=== PATIENT | female | born 1940 | race Caucasian/White ===

== ENCOUNTER 2016-09-12 05:49 | Inpatient (IN) | payer MEDICARE, MEDICAID ==
--- OUTSIDE RECORDS SUMMARY | 2016-09-12 05:53 | XMS REPORT | Continuity of Care Document ---
:1940 Author Organization [facility] ([facility]) Address [address] [place] [address] Phone [phone] Care Team Providers Name Role Phone Laura Bailey Primary Care Provider [phone] Source Comments This disclosure is being made pursuant to the Care Everywhere program, applicable federal and state laws, and may not contain all informaitonavailable regarding this patient.[facility] ([facility]) Active Allergies and Adverse Reactions No Known Allergies Current Medications Prescription Sig. Disp. Refills Start End Date Status Date ALPRAZolam (XANAX) Take 0.5 mg by mouth 3 Active 0.5 mg tablet times daily as needed. simvastatin (ZOCOR) take 1 Tab by mouth 30 Tab 11 Active 40 mg tablet every evening for 30 9 days. Indications: Hypercholesterolemia aspirin 325 mg take 325 mg by mouth Active tablet daily. atenolol (TENORMIN) take 1 Tab by mouth 30 Tab 11 Active 25 mg tablet daily. Indications: 9 ectopy lisinopril 2.5 mg Take 1.25 mg by mouth at Active tablet bedtime. traZODone 100 mg Take 100 mg by mouth at Active tablet bedtime. NYSTATIN-TRIAMCINOL as needed. 2 Active ONE 100,000-0.1 5 unit/g-% cream DOCUSATE CALCIUM Take 100 mg by mouth 2 Active (STOOL SOFTENER PO) times daily as needed. cyanocobalamin Take 1,000 mcg by mouth Active (VITAMIN B-12) daily. 1,000 mcg tablet magnesium oxide 250 Take 250 mg by mouth Active mg tablet daily. diphenhydrAMINE 25 Take 50 mg by mouth Active mg tablet every 6 hours as needed. cimetidine 200 mg Take 200 mg by mouth Active tablet daily as needed. phenazopyridine 95 Take 95 mg by mouth 3 Active mg tablet times daily as needed. estradiol (ESTRACE) Insert 1 Applicatorful 42.5 g 11 Active 0.01 % vaginal vaginally every week. 6 cream nystatin-triamcinol Pt will call when needs 30 g 6 Active one 100,000-0.1 refil - 1-3x/week prn 6 unit/gram-% ointment fluconazole 200 mg Take 1 tablet (200 mg 3 tablet 2 Active tablet total) by mouth every 48 6 hours. fluconazole 200 mg Take 1 tablet (200 mg 3 tablet 1 Active tablet total) by mouth every 48 6 hours. Hold simvastatin on the day you take diflucan levETIRAcetam 250 Take 1 tablet (250 mg 90 tablet 3 Active mg tablet total) by mouth 3 times 7 daily. Active Problems Problem Noted Date Spondylosis of lumbar region without myelopathy or radiculopathy 09/30/2015 Lumbar spine scoliosis 09/30/2015 Bilateral low back pain without sciatica 09/30/2015 Macular atrophy, retinal 12/25/2014 Hyperopia with presbyopia of both eyes 12/25/2014 Yeast vaginitis 11/2013 - & 02/2016 Sabiha albicans 11/27/2014 Pessary maintenance 11/24/2014 Vaginal atrophy 10/04/2014 Vulvar atrophy 10/04/2014 Bladder pain 10/04/2014 Vaginal pain 10/04/2014 Dysuria 10/04/2014 Prolapse of vaginal vault after hysterectomy 03/28/2013 Pelvic pain 03/28/2013 Right lower quadrant abdominal pain 03/25/2013 Myofascial pain syndrome 03/25/2013 Pain in limb 11/30/2007 Most Recent Encounters Date Type Specialty Providers Description 07/28/2016 Refill Anesthesiology Farooq Terrell, [facility] Dx: Neuropathic pain (Primary Dx) 07/01/2016 Office Visit Anesthesiology Harlan Banks MD Chief Comp: Patient Reported Reason For Visit 06/22/2016 Office Visit Obg Urogynecology Bess Tracy, Chief Comp : Patient MD Reported Reason For Sindy Shannon, [employer] Visit Social History Tobacco Use Types Packs/Day Years Used Date Never Smoker Smokeless Tobacco: Never Used Tobacco Cessation:Counseling Given: Yes Comments: Alcohol Use Drinks/Week oz/Week Comments No Last Filed Vital Signs Vital Sign Reading Time Taken Blood Pressure 155/71 02/24/2016 2:59 PM CDT Pulse 57 02/24/2016 2:59 PM CDT Temperature 36.6 C (97.9 F) 02/24/2016 1:16 PM CDT Respiratory Rate 18 02/16/2016 2:44 PM CDT Height 1.778 m (5' 10") 02/24/2016 2:59 PM CDT Weight 71.9 kg (158 lb 8.2 oz) 02/24/2016 2:59 PM CDT Body Mass Index 22.74 02/24/2016 2:59 PM CDT Oxygen Saturation 98% 02/24/2016 2:03 PM CDT Plan of Care Date Type Specialty Providers Description 11/04/2016 Appointment Anesthesiology Harlan Banks MD Chief Comp: Patient 2, Pain Clinic Provider Reported Reason For Visit Health Maintenance Due Date Last Done Comments Hepatitis B Vaccine (1 of 3 - Primary Series) 1940 Tdap Vaccine 1949 Lipid Disorder Screening 1956 Td Vaccine 1956 Colonoscopy 04/04/1988 Zoster Vaccine 1998 Osteoporosis Screening (DXA Bone Density) 2003 Pneumococcal Vaccine (1 of 2 - PCV13) 2003 Mammogram 07/08/2012 07/08/2011 Influenza Vaccine: Seasonal (#1) 02/08/2016 Results from Last 3 Months Not on file
[2016-09-12] MEDS ORDERED: MORPHINE SULFATE 15 MG TABLET.SA PO PRN (06:00)
[2016-09-12] MEDS ORDERED: ROPIVACAINE HCL/PF 100 MG, KETOROLAC TROMETHAMINE 30 MG, EPINEPHrine 0.2 MG in NORMAL S... IJ PRN (06:00)
[2016-09-12] MEDS ORDERED: ceFAZolin SODIUM 1 GM VIAL IV PRN (06:00)
[2016-09-12] MEDS ORDERED: TRANEXAMIC ACID 1,000 MG in NORMAL SALINE 100 ML IV PRN (06:00)
[2016-09-12] MEDS: RINGERS SOLUTION,LACTATED 1,000 ML IV PRN ×2 (07:07→07:45)
[2016-09-12] MEDS ORDERED: MORPHINE SULFATE 15 MG TABLET.SA PO ONE (07:36)
[2016-09-12] MEDS ORDERED: RINGERS SOLUTION,LACTATED 1,000 ML IV ONE (09:45)
[2016-09-12] MEDS ORDERED: ZOLPIDEM TARTRATE 5 MG TABLET PO PRN (10:03)
[2016-09-12] MEDS ORDERED: HYDROmorphone HCL 1 MG/ML DISP.SYRIN IV PRN (10:03)
[2016-09-12] MEDS ORDERED: diphenhydrAMINE HCL 50 MG/ML VIAL IV PRN (10:03)
[2016-09-12] MEDS ORDERED: ACETAMINOPHEN 500 MG TABLET PO PRN (10:03)
[2016-09-12] MEDS ORDERED: MAGNESIUM HYDROXIDE 30 ML UDC PO PRN (10:03)
[2016-09-12] MEDS ORDERED: MAG HYDROX/ALUMINUM HYD/SIMETH 30 ML UDC PO PRN (10:03)
[2016-09-12] MEDS ORDERED: diphenhydrAMINE HCL 25 MG CAPSULE PO PRN (10:06)
[2016-09-12] MEDS ORDERED: traZODone HCL 50 MG TABLET PO PRN (10:06)
[2016-09-12] MEDS ORDERED: ALPRAZolam 0.5 MG TABLET PO PRN (10:06)
--- NOTE | 2016-09-12 10:11 | OR ---
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 Procedure: Right Total knee arthroplasty. Surgeon: Tone Driscoll M.D. Snowboard Instructor: Lincoln Hussein PA-C Anesthesia: Spinal with regional block and local periarticular joint injection. Complications: None Specimens: Bone for disposal. Estimated blood loss: Minimal. Tourniquet time: 85 Minutes at 325 millimeters of mercury. Retained implants: Depuy Attune size 7 right lugged cemented posterior stabilized femoral component. Size 5 fixed-bearing cemented tibial platform. 7 by 7 millimeter posterior stabilized cross-linked tibial insert. 35 millimeter medialized patella button. Indications: Mrs. Rosario is a 76-year-old female who had pain in her right knee with MRI findings consistent with arthrosis and a significant medial femoral condyle osteonecrosis. This patient was followed in my clinic for period of time with significant complaints of right knee pain consistent with arthritic changes. They had failed conservative measures including, but not limited to, activity modification, passage of time, medications, and other conservative measures. Patient wished to proceed with surgical treatment. The risks, benefits, and alternatives were discussed in clinic. The risks of , blood clots, bleeding, infection, nerve/tendon blood vessel/ injury, malposition of components, intraoperative fracture, postoperative limited range of motion, persistent pain, failure of components, and need for additional procedures. Patient wished to proceed consent was obtained after answering all questions. Procedure: After marking the correct extremity on the floor, the patient was taken to the operating room. A timeout was performed. IV antibiotics consisting of Ancef were administered prior to the procedure. A regional followed by spinal anesthetic was induced by anesthesia on the operative table with all bony prominences well-padded. James catheter was placed, and a bump was placed under the operative side buttock. SCDs and SAMANTHA hose were utilized on the nonoperative leg. A well-padded tourniquet was applied to the operative thigh. The operative leg was then pre-scrubbed with alcoho,l prepped, and draped in a standard sterile fashion. After exsanguinating the extremity with an Esmarch bandage, the tourniquet was inflated. After marking out the anterior knee for standard incision centered over the patella, the skin was incised and dissected down to the joint retinaculum. The joint retinaculum was marked out as well as the horizontal axis of the patella, and a standard medial parapatellar arthrotomy was then made. The most proximal aspect of the quadriceps tendon and the patella tendon insertion were protected from release. A partial synovectomy was performed as well as a resection of the infrapatellar fat pad. The distal femoral fat pad proximal to the trochlea was also resected using cautery. The soft tissues were elevated off the medial aspect of the proximal tibia using a Lyons elevator ensuring that we did not transect the medial collateral ligament. Upon initial evaluation range of motion was approximately 0 degrees to 140 degrees of flexion. There were signs of advanced arthrosis in the patellofemoral joint and there was notable softening and depression of the medial femoral condyle. There were large marginal osteophytes which were removed with a rongeur. The knee was hyperflexed and the patella was tucked laterally. Protecting the surrounding soft tissues with Homans, an entry drill was placed down the femoral canal using Whitesides line for guidance into the entry point. The intramedullary femoral alignment mario was utilized in order to cut the distal femur in 5 degrees of valgus resecting 10 millimeters of bone. Next the distal femur was sized to a size 7. A posterior referencing guide was utilized to place the distal femoral cutting block in 3 degrees of external rotation. This was pinned into place. The rotation was confirmed both visually and based on anatomic landmarks. The 4 in 1 cutting jig of the appropriate size was utilized in order to make all bony cuts. The angle wing was used to ensure no notching. Retractors were utilized in order to protect surrounding soft tissues. This cut did not result in any excessive notching. We then cut the box centered over the distal femur. This allowed for resection of the anterior and posterior cruciate ligaments. I then turned my attention to the preparation of the tibia. Using an extra medullary tibial alignment mario, 4 millimeters of bone was resected off the medial articular surface. This was made perpendicular to the mechanical axis of the joint with the alignment mario centered over the ankle mortise. The alignment mario was checked and was noted to be parallel to the mechanical axis, centered over the medial one third of the tibial tubercle, paralleling the anterior surface of the tibia. We then turned our attention to the remaining meniscus and soft tissues. These were removed while protecting the surrounding ligaments and soft tissues. The marginal osteophytes off the anterior, posterior, medial, lateral aspects of the femur and tibia were removed. The tibia was sized out to a size 5. Next the tibia was drilled and punched in an externally rotated position. Next the trial femur and a series of tibial inserts were utilized in order to allow for full extension and maximal flexion. It was found that a 7 millimeter insert gave the best range of motion and stability at multiple flexion points as well as at full extension there was less than 2 mm of gapping both medially and laterally. There is minimal anterior translation with the knee at 90 degrees of flexion and no signs of being able to dislocate the knee. The patella was then prepared. The initial thickness was 25 millimeters. This was reamed down to 15 millimeters parallel to the anterior surface of the patella. It was sized out to a size 35 medialized patella button. This was then drilled and trialed. Without any medial restraint the patella tracked appropriately and did not sublux or dislocate. At this point, it was felt these were the appropriate sized implants, and all trials were removed. The standard periarticular joint injection consisting of ropivacaine, Toradol, and epinephrine were injected into the periarticular joint tissues. The bony surfaces were thoroughly irrigated with a pulsatile- suction saline irrigation device. A bone plug from the prior resected anterior chamfer cut was placed into the drill hole at the distal femur. The bony surfaces were then dried in preparation for placement of the implants. The cement was vacuum mixed per the harbormaster's instructions. The cement was placed on the dry bony surfaces and posterior aspect of the implants. The implants were impacted into place, removing all extruded cement. At this point anesthesia administered tranexamic acid per protocol intravenously. The knee was placed in extension with axial loading with the trial insert while the cement cured. Once the cement cured, all remaining extruded cement was removed. The knee was placed through a range of motion with the trial insert to ensure appropriate range of motion and stability. Final range of motion was approximately 0 to 130 degrees. The knee was again thoroughly irrigated with pulsatile saline lavage. The final polyethylene insert was then impacted into place ensuring no retained soft tissues. The remaining periarticular joint injection was injected. A medium Hemovac drain was placed exiting superior laterally. The knee was then placed over a triangle and the arthrotomy was closed with interrupted #1 Vicryl after thoroughly irrigating the joint. The deep and subcutaneous tissues were closed with interrupted oh and 3-0 Vicryl respectively. Skin was closed with a running subcutaneous 3-0 Monocryl and a prineo Dermabond dressing. 4 x 4's, ABD, Sof-Rol, and a full leg Dmitry wrap were applied. All sponge, needle, blade, and instrument counts were correct prior to closing the wounds. Postoperative condition: The patient was awoken and transferred to the postanesthesia care unit in stable condition. Plan is to be admitted to the inpatient medical/surgical floor postoperatively for 24 hours of IV antibiotics , physical therapy, occupational therapy, and medical comanagement. Patient will be weightbearing as tolerated with range of motion as tolerated. DVT prophylaxis will be with SCDs, SAMANTHA hose, and pharmacological anticoagulation. Anticipated hospital stay is approximately 2-4 days.
[2016-09-12] MEDS: DEXTROSE 5%-LACTATED RINGERS 1,000 ML IV PRN ×2 (12:44→21:01)
[2016-09-12] MEDS: levETIRAcetam 500 MG TABLET PO SCH (12:47)
[2016-09-12] MEDS: KETOROLAC TROMETHAMINE 15 MG/ML VIAL IV SCH ×3 (12:48→22:32)
[2016-09-12] MEDS: ceFAZolin SODIUM 1 GM in DEXTROSE 5 % IN WATER 100 ML IV SCH ×4 (14:01→20:54)
[2016-09-12] MEDS: oxyCODONE HCL/ACETAMINOPHEN 1 TAB TABLET PO PRN ×2 (17:44→22:36)
[2016-09-12] MEDS: SENNOSIDES/DOCUSATE SODIUM 1 TAB TABLET PO SCH (20:54)
[2016-09-12] MEDS: LISINOPRIL 2.5 MG TABLET PO SCH (20:54)
[2016-09-12] MEDS: MORPHINE SULFATE 15 MG TABLET.SA PO SCH (20:56)
[2016-09-12] MEDS: SIMVASTATIN 40 MG TABLET PO SCH (20:57)
[2016-09-13] MEDS: ceFAZolin SODIUM 1 GM in DEXTROSE 5 % IN WATER 100 ML IV SCH ×2 (01:34)
[2016-09-13] MEDS: KETOROLAC TROMETHAMINE 15 MG/ML VIAL IV SCH ×4 (05:07→22:31)
[2016-09-13] MEDS: oxyCODONE HCL/ACETAMINOPHEN 1 TAB TABLET PO PRN ×2 (05:12→13:16)
[2016-09-13 06:02] LABS: Hematocrit 31.5 % (37.0-47.0); Hemoglobin 10.3 gm/dL (12.5-16.0); Mean Cell Volume 95.7 fl (78-100); Mean Corpuscular Hemoglobin 31.3 pg (27-31); Mean Corpuscular Hgb Conc 32.7 g/dl (32-36); Mean Platelet Volume 9.3 fl (6.0-9.5); Platelet Count 217 K/mm3 (150-450); Red Blood Count 3.29 M/mm3 (4.2-5.4); Red Cell Distribution Width 12.8 % (11.5-14.0); White Blood Count 7.8 K/mm3 (4.0-10.5)
[2016-09-13 06:17] LABS: BUN/Creatinine Ratio 7.2 (9.0-21.6); Calcium * 8.2 mg/dL (7.9-10.9); Carbon Dioxide 28.9 mmol/L (24-32.6); Estimated Creat Clear 51.7; Potassium 3.9 mmol/L (3.4-4.6)
[2016-09-13] MEDS: ONDANSETRON HCL/PF 2 MG/ML VIAL IV PRN ×3 (06:55→19:35)
[2016-09-13] MEDS: levETIRAcetam 500 MG TABLET PO SCH ×2 (08:00→12:13)
--- NOTE | 2016-09-13 08:27 | PN ---
Subjective - Date and Time Seen Date: 09/13/16 Time: 08:21 Subjective Narrative: Subjective: Reports nausea and some urinary discomfort. She is sitting in the bed. Pain is well-controlled. Voiding without any complications. Tolerating by mouth intake. Denies calf pain. Slept well. Physical exam: Alert and oriented to person, place and time Right lower Extremity: Palpable dorsalis pedis pulse. Sensation grossly intact to light touch. Dressings clean and dry. Able to flex and extend ankle and toes. No excessive drainage. Calf and thigh are soft and nontender. Assessment: Postop day 1 status post right total knee arthroplasty. Plan: Continue with physical and occupational therapy weightbearing as tolerated. Continue with anticoagulation. 24 hours postoperative prophylactic antibiotics. Pain control with goal to rely on oral medications. We will monitor her nausea and if it seems to be related to her pain meds were changed disease. Continue bowel regimen. Will need 6 weeks with walker or assitive device to protect joint while ambulating during the recovery process. Discharge planning. Discontinue drain and James catheter. Urinalysis has she uses a pessary and notes occasional urinary tract infections. Repeat labs in a.m. Objective - Vitals Vitals: Last Vital Signs Temp 36.3 C L 09/13/16 06:53 Pulse 49 L 09/13/16 06:53 Resp 16 09/13/16 06:53 BP 97/49 09/13/16 06:53 Pulse Ox 95 09/13/16 06:53 - Abnormal Lab Findings Abnormal Lab Findings: Abnormal Lab Results 09/13/16 09/13/16 Range/Units 05:50 05:50 RBC 3.29 L (4.2-5.4) M/mm3 Hgb 10.3 L (12.5-16.0) gm/dL Hct 31.5 L (37.0-47.0) % MCH 31.3 H (27-31) pg Est GFR (Non-Af Amer) 59 L (60-130) mL/min BUN/Creatinine Ratio 7.2 L (9.0-21.6) Random Glucose 113 H (70-110) mg/dL - Exam Constitutional: Present: Alert, Oriented x3 Cauti Physician Documentation - Urinary Catheter Management Urethral (James) Date of Insertion: 09/12/16 Time of Insertion: 08:00 Assessment/Plan - Problems/Diagnosis (1) Status post total right knee replacement Problem: Acute (2) Acute blood loss anemia Problem: Acute (3) Dysuria Problem: Acute (4) Hypertension Problem: Chronic (5) Heart murmur Problem: Chronic (6) Hyperlipidemia Problem: Chronic (7) Cystocele Problem: Chronic (8) Atrophic vaginitis Problem: Chronic
[2016-09-13] MEDS: PROMETHAZINE HCL 5 MG in DEXTROSE 5 % IN WATER 50 ML IV PRN ×4 (08:52→15:44)
[2016-09-13 09:04] LABS: Urine Bilirubin Negative (NEGATIVE); Urine Blood 250 /ul (NEGATIVE); Urine Ketone Negative (NEGATIVE); Urine Nitrite Negative (NEGATIVE); Urine Protein Negative (NEGATIVE); Urine Specific Gravity >=1.030 SP.GR. (1.005-1.010); Urine Urobilinogen Normal (NORMAL)
[2016-09-13 09:11] LABS: Urine Appearance Clear; Urine Bacteria 4+; Urine Color Yellow; Urine Mucus Moderate - 2+; Urine Renal Epithelial Cell Few - 1+ /hpf; Urine Yeast Many - 3+
[2016-09-13] MEDS: ENOXAPARIN SODIUM 40 MG/0.4 ML SYRG SC SCH (10:00)
[2016-09-13] MEDS: CYANOCOBALAMIN 1,000 MCG TABLET PO SCH (10:00)
[2016-09-13] MEDS: MAGNESIUM OXIDE 400 MG TABLET PO SCH (10:00)
[2016-09-13] MEDS: MORPHINE SULFATE 15 MG TABLET.SA PO SCH ×2 (10:02→20:29)
[2016-09-13] MEDS: ATENOLOL 25 MG TABLET PO SCH (10:06)
[2016-09-13] MEDS: CIPROFLOXACIN HCL 500 MG TABLET PO SCH (20:29)
[2016-09-13] MEDS: SIMVASTATIN 40 MG TABLET PO SCH (20:30)
[2016-09-13] MEDS: SENNOSIDES/DOCUSATE SODIUM 1 TAB TABLET PO SCH (20:30)
[2016-09-13] MEDS: LISINOPRIL 2.5 MG TABLET PO SCH (20:30)
[2016-09-14] MEDS: oxyCODONE HCL/ACETAMINOPHEN 1 TAB TABLET PO PRN (00:24)
[2016-09-14 05:11] LABS: Hematocrit 36.5 % (37.0-47.0); Hemoglobin 11.3 gm/dL (12.5-16.0); Mean Cell Volume 100.6 fl (78-100); Mean Corpuscular Hemoglobin 31.1 pg (27-31); Mean Platelet Volume 9.9 fl (6.0-9.5); Platelet Count 170 K/mm3 (150-450); Red Blood Count 3.63 M/mm3 (4.2-5.4); Red Cell Distribution Width 12.7 % (11.5-14.0); White Blood Count 7.5 K/mm3 (4.0-10.5)
[2016-09-14 05:25] LABS: BUN/Creatinine Ratio 6.9 (9.0-21.6); Calcium * 8.5 mg/dL (7.9-10.9); Carbon Dioxide 25.2 mmol/L (24-32.6); Estimated Creat Clear 49.6; Potassium 4.2 mmol/L (3.4-4.6)
[2016-09-14] MEDS: KETOROLAC TROMETHAMINE 15 MG/ML VIAL IV SCH (05:36)
[2016-09-14] MEDS: levETIRAcetam 500 MG TABLET PO SCH ×2 (06:49→12:11)
[2016-09-14] MEDS: ONDANSETRON HCL/PF 2 MG/ML VIAL IV PRN ×2 (07:48→12:14)
[2016-09-14] MEDS: MORPHINE SULFATE 15 MG TABLET.SA PO SCH ×2 (09:11→20:51)
[2016-09-14] MEDS: CYANOCOBALAMIN 1,000 MCG TABLET PO SCH (09:11)
[2016-09-14] MEDS: CIPROFLOXACIN HCL 500 MG TABLET PO SCH ×2 (09:11→20:50)
[2016-09-14] MEDS: ATENOLOL 25 MG TABLET PO SCH (09:12)
[2016-09-14] MEDS: MAGNESIUM OXIDE 400 MG TABLET PO SCH (09:12)
[2016-09-14] MEDS: ENOXAPARIN SODIUM 40 MG/0.4 ML SYRG SC SCH (09:13)
--- NOTE | 2016-09-14 13:02 | PN ---
Subjective - Date and Time Seen Date: 09/14/16 Time: 12:57 Subjective Narrative: Main complaint is nausea. No vomiting. Has not had a bowel movement. Pain has been well controlled. Does not feel nausea related to taking pain medication. Has nausea with smell of food and with activities. Is ambulating well with PT. Objective Objective Narrative: Bandages removed. Incision well approximated. No drainage or active bleeding. ROM 5-80 degrees. Calf supple. N/V intact PF/DF ankle. - Vitals Vitals: Last Vital Signs Temp 37.7 C H 09/14/16 10:00 Pulse 77 09/14/16 10:00 Resp 20 09/14/16 10:00 BP 134/59 09/14/16 10:00 Pulse Ox 95 09/14/16 10:00 - Abnormal Lab Findings Abnormal Lab Findings: Abnormal Lab Results 09/14/16 09/14/16 Range/Units 05:00 05:00 RBC 3.63 L (4.2-5.4) M/mm3 Hgb 11.3 L (12.5-16.0) gm/dL Hct 36.5 L (37.0-47.0) % MCV 100.6 H (78-100) fl MCH 31.1 H (27-31) pg MCHC 31.0 L (32-36) g/dl MPV 9.9 H (6.0-9.5) fl Est GFR (Non-Af Amer) 56 L (60-130) mL/min BUN/Creatinine Ratio 6.9 L (9.0-21.6) - Exam Constitutional: Present: Alert, Oriented x3, Cooperative, No distress Cauti Physician Documentation - Urinary Catheter Management Urethral (James) Date of Insertion: 09/12/16 Time of Insertion: 08:00 Date of Removal: 09/13/16 Time of Removal: 06:45 Assessment/Plan - Problems/Diagnosis (1) Acute blood loss anemia Problem: Acute Narrative: stable, asymptomatic (2) Dysuria Problem: Acute Narrative: on cipro (3) Status post total right knee replacement Problem: Acute Narrative: PT, anticoagulation, pain control, plan for discharge tomorrow (4) Hyperlipidemia Problem: Chronic (5) Hypertension Problem: Chronic
[2016-09-14] MEDS: HYDROcodone/ACETAMINOPHEN 1 EACH TABLET PO PRN ×2 (16:48→20:51)
[2016-09-14] MEDS: SENNOSIDES/DOCUSATE SODIUM 1 TAB TABLET PO SCH (20:49)
[2016-09-14] MEDS: SIMVASTATIN 40 MG TABLET PO SCH (20:50)
[2016-09-14] MEDS: LISINOPRIL 2.5 MG TABLET PO SCH (20:51)
[2016-09-15] MEDS: levETIRAcetam 500 MG TABLET PO SCH (06:47)
--- NOTE | 2016-09-15 08:52 | DS ---
(1) Acute blood loss anemia Problem: Acute (2) Dysuria Problem: Acute (3) Status post total right knee replacement Problem: Acute (4) Hyperlipidemia Problem: Chronic (5) Hypertension Problem: Chronic Description of Stay: Mrs. Rosario was admitted on September 12 after undergoing right total knee arthroplasty. She was admitted for PT, anticoagulation, pain control and antibiotics. She progressed well with therapy. Her main complaint was nausea which was treated. She reported dysuria and this was treated with Cipro. Post op day one drain and glaser removed. Post operative anemia noted with last Hgb of 11.3. Anemia asymptomatic. Dressings changed post op day 2 with wound looking stable. ROM on discharge 5-80 degrees. Patient discharged to resume home medications. She was discharged on [place] and MS Contin for pain. Xarelto for 7 more days and then resume 325mg asprin daily after that. Outpatient PT was ordered. She has a follow up in our office in 10-14 days. She is to report any drainage from her wound or any concerns. Report any fevers greater than 101.5. Procedures Performed: see notes below Discharge Disposition: Home self care Disposition: Home self-care Condition: Good Referrals: Laura Bailey MD [Primary Care Provider] - Additional Patient Instructions (free text): Follow-up in the office with Dr. Driscoll on 09-27-16@9:45am. [facility] September 16 at 10:30 a.m. Prescriptions (Any new or edited meds): Ciprofloxacin HCl [Cipro] 500 mg PO BID 3 Days HYDROcodone/ACETAMINOPHEN [Portage 5-325] 2 each PO Q4H PRN #90 tablet PRN Reason: Pain Morphine Sulfate [Ms Contin] 15 mg PO Q12H #30 tablet.sa Promethazine HCl [Phenergan] 25 mg PO Q4H #30 tablet Rivaroxaban [Xarelto] 10 mg PO DAILY #7 tablet Sennosides/Docusate Sodium [Senokot-S] 2 tab PO HS #30 tablet Complete Home Medications List: Complete Home Medication List: ALPRAZolam [Xanax] 0.5 mg PO TID PRN 08/31/16 Atenolol [Tenormin] 12.5 mg PO DAILY 08/31/16 Cyanocobalamin [Vitamin B-12] 1,000 mcg PO DAILY 08/31/16 Diphenhydramine HCl [Benadryl] 50 mg PO Q6H PRN 08/31/16 Estradiol [Estrace Vaginal] 1 appl VG Q7D PRN 08/31/16 Hydrocodone/Acetaminophen [Lortab 5-325 mg Tablet] 1 each PO Q6H PRN 08/31/16 Levetiracetam [Keppra] 500 mg PO 1200 08/31/16 Lisinopril [Zestril] 1.25 mg PO HS 08/31/16 Magnesium Oxide [Magnesium] 250 mg PO DAILY 08/31/16 Simvastatin [Zocor] 40 mg PO HS 08/31/16 traZODone HCL [Desyrel] 100 mg PO HS PRN 08/31/16 Levetiracetam 250 mg PO DAILY 09/12/16 Ciprofloxacin HCl [Cipro] 500 mg PO BID 3 Days 09/15/16 HYDROcodone/ACETAMINOPHEN [Port[place] 5-325] 2 each PO Q4H PRN #90 tablet 09/15/16 Morphine Sulfate [Ms Contin] 15 mg PO Q12H #30 tablet.sa 09/15/16 Promethazine HCl [Phenergan] 25 mg PO Q4H #30 tablet 09/15/16 Rivaroxaban [Xarelto] 10 mg PO DAILY #7 tablet 09/15/16 Sennosides/Docusate Sodium [Senokot-S] 2 tab PO HS #30 tablet 09/15/16
[2016-09-15] MEDS: MORPHINE SULFATE 15 MG TABLET.SA PO SCH (09:46)
[2016-09-15] MEDS: CYANOCOBALAMIN 1,000 MCG TABLET PO SCH (09:47)
[2016-09-15] MEDS: MAGNESIUM OXIDE 400 MG TABLET PO SCH (09:47)
[2016-09-15] MEDS: ENOXAPARIN SODIUM 40 MG/0.4 ML SYRG SC SCH (09:48)
[2016-09-15] MEDS: ATENOLOL 25 MG TABLET PO SCH (09:48)
[2016-09-15] MEDS: CIPROFLOXACIN HCL 500 MG TABLET PO SCH (09:48)
[2016-09-15 10:41] VITALS: BP 126/64
== END 2016-09-15 12:12 | disposition home or self-care (01) | DRG 470 ==
LOC: MS 05:49
PROVIDERS: ADMIT Orthopaedic Surgery; ATTEND Orthopaedic Surgery
PROC: 0SRC0J9 Replacement of Right Knee Joint with Synthetic Substitute, Cemented, Open Approach (ICD-10-PCS; principal; 2016-09-12 08:00)
DX: M17.11 Unilateral primary osteoarthritis, right knee (principal); M87.9 Osteonecrosis, unspecified; D62 Acute posthemorrhagic anemia; R30.0 Dysuria; I10 Essential (primary) hypertension; E78.5 Hyperlipidemia, unspecified; Z79.82 Long term (current) use of aspirin

== ENCOUNTER 2019-09-26 12:19 | Inpatient (IN) ==
--- NOTE | 2019-09-26 14:52 | HP ---
Chief Complaint - Chief Complaint Date of Service: 09/26/19 Time of Service: 14:29 Chief Complaint: hip fracture History of Present Illness: Patient with past medical history of hypertension, recent pulmonary embolism and DVT on Eliquis, temporal arteritis on steroid taper, arthritis. She has had right hip pain for somewhere between 2 and 4 weeks. She went to the ER, and hip x-rays were negative. She then went to her PCP who ordered a CT, which showed " SUBTLE HORIZONTAL BONY SCLEROSIS INVOLVING THE SUBCAPITAL REGION OF THE RIGHT FEMUR. THIS MAY REFLECT AN INCOMPLETE FRACTURE." She denies falling. Ortho was consulted, who is planning on taking her to the OR for repair tomorrow. She denies any other acute complaints. No signs of infection. Medical History (Last Reviewed 09/26/19 @ 13:31 by Annette Judd RN) Acute blood loss anemia (Chronic) Onset Date: Unknown Dysuria (Chronic) Onset Date: Unknown Hypertension (Chronic) Onset Date: Unknown Heart murmur (Chronic) Onset Date: Unknown Hyperlipidemia (Chronic) Onset Date: Unknown Cystocele (Chronic) Onset Date: Unknown Atrophic vaginitis (Chronic) Onset Date: Unknown History of pulmonary embolism Arrhythmia Onset Date: Unknown B12 deficiency Onset Date: ~2012 Breast neoplasm, malignant Onset Date: ~1997 left, lump removed GERD (gastroesophageal reflux disease) Onset Date: ~2012 Hypertension, essential Onset Date: ~2012 Osteoarthritis Onset Date: ~2012 Ovarian cyst Onset Date: Unknown Surgical History: Surgical History (Last Reviewed 09/26/19 @ 13:31 by Annette Judd RN) History of appendectomy Onset Date: ~1956 History of back surgery Onset Date: ~1991 laminectomy L4-L5 History of bladder surgery Onset Date: ~2004 Pessary History of dilation and curettage Onset Date: Unknown 2 or 3 History of hysterectomy Onset Date: ~1976 abd History of lumpectomy Onset Date: ~1989 left breast-cancer History of oophorectomy Onset Date: ~1976 half of ovary remaining History of temporal artery biopsy Onset Date: 05/13/19 [id number]. History of total knee arthroplasty Onset Date: ~2016 Dr. Driscoll- Family History: Family History (Last Reviewed 09/26/19 @ 13:31 by Annette Judd RN) Brother Diabetes Brother Diabetes Father , age 75- Heart disease Alcoholism Mother , age 65 from [place] Breast cancer dx-age 50's Diabetes Brother Diabetes Heart disease Brother Cancer lung Brother , shot accidental No problems noted. Social History: (Last Updated 09/26/19 @ 13:32 by Annette Judd RN) Social History: longterm: No Marital status: / lives independently: Yes household members: none number of children: 4 current occupational status: retired Service: No Tobacco: Smoking Status: Never smoker Alcohol: alcohol intake: former Substance Use: substance use type: does not use Dietary Habits: caffeine: No Personal Safety: victim of physical abuse: No victim of emotional abuse: No Review Of Systems (GEN) - Review of Systems Generalized/Overall Review: Absent: Fever EENTM: Present: Other - Facial swelling since starting prednisone Respiratory: Absent: Cough, Shortness of Breath Cardiac: Absent: Chest Pain, Edema Abdominal: Present: Constipation - Not increased from baseline. Absent: Vomiting Genitourinary: Present: No Symptoms Reported Musculoskeletal: Present: Joint Pain - Right hip, Back Pain Neurological: Present: No Symptoms Reported Skin: Present: No Symptoms Reported Immunizations: IMMUNIZATION HX Immunizations Up to Date Yes History of Influenza Vaccine No Hx Pneumococcal Vaccination No Allergies/Adverse Reactions: Allergies Allergy/AdvReac Type Severity Reaction Status Date / Time tizanidine Allergy cough, bad Verified 09/24/19 09:21 sore throat Home Medications: HOME MEDICATIONS Cyanocobalamin [Vitamin B-12] 500 mcg PO DAILY 08/31/16 [Last Taken Unknown] Estradiol [Estrace Vaginal] 1 gm VG DAILY PRN 08/31/16 [Last Taken Unknown] aspirin 325 mg tablet 81 mg PO DAILY 03/06/18 [Last Taken Unknown] levetiracetam 250 mg tablet 250 mg PO TID tab 02/19/19 [Last Taken Unknown] magnesium citrate 100 mg tablet 100 mg PO DAILY 02/19/19 [Last Taken Unknown] alprazolam 0.5 mg tablet 0.5 mg PO TID PRN #30 tab 07/24/19 [Last Taken Unknown] trazodone 100 mg tablet 100 mg PO HS #30 tab 07/25/19 [Last Taken Unknown] Tocilizumab [Actemra] 162 mg SQ Q7D 09/23/19 [Last Taken Unknown] Apixaban [Eliquis] 5 mg PO BID 09/26/19 [Last Taken Unknown] Cyclobenzaprine HCl 10 mg PO DAILY PRN 09/26/19 [Last Taken Unknown] Diphenhydramine HCl 50 mg PO Q6H PRN 09/26/19 [Last Taken Unknown] Docusate Sodium [Colace] 100 mg PO BID 09/26/19 [Last Taken Unknown] Esomeprazole Magnesium [Nexium] 40 mg PO DAILY PRN 09/26/19 [Last Taken Unknown] HYDROcodone/ACETAMINOPHEN [Hydrocodon-Acetaminophen 5-325] 1 ea PO BID 09/26/19 [Last Taken Unknown] Lisinopril 1.25 mg PO HS 09/26/19 [Last Taken Unknown] Metoprolol Succinate [Toprol Xl] 25 mg PO DAILY 09/26/19 [Last Taken Unknown] Prednisone 10 mg PO DAILY 09/26/19 [Last Taken Unknown] Simvastatin 40 mg PO HS 09/26/19 [Last Taken Unknown] Exam - Exam Vital Signs: Vital Signs - Last Taken Temp 37.1 C 09/26/19 13:04 Pulse 79 09/26/19 13:04 Resp 14 09/26/19 13:04 BP 148/64 09/26/19 13:04 Pulse Ox 98 09/26/19 13:04 Constitutional: Present: Alert, Cooperative, No distress, Elderly ENT Exam: Present: moist mucous membranes Respiratory: Present: lungs clear, normal breath sounds Cardiovascular/Chest: Present: regular rate, rhythm Abdomen: Present: soft, nontender Extremity: Absent: lower extremity edema Eye contact: Present: cooperative Assessment/Plan - Assessment/Plan (1) Subcapital fracture of right femur Assessment: Ortho has been consulted, and is planning on surgical repair tomorrow. She reports being sensitive to anesthesia and pain medications. she is prescribed lortab bid, and will continue. Will also add prn lortab to her scheduled home lortab, so she can have pain meds q6h. CMP, CBC, EKG pending did not reveal significant abnormality to interfere with surgery. Using the NSQIP surgical risk calculator, she is below average risk for any complication. OK to proceed with surgery. She is average risk for developing a VTE. She is above average risk for DC to rehab facility. Problem: Acute (2) Temporal arteritis Assessment: She is seeing a qual field manager at the [facility]. She reports being started on 60 mg of prednisone back in April. She is currently taking 12.5 mg prednisone, and will decrease to 10 mg next week. Discussed the high likelihood that her facial swelling she has been observing is from the steroid. Problem: Acute (3) Arthritis Assessment: She goes to a pain clinic and is prescribed Lortab and 250 mg Keppra 3 times daily for pain and opioid use. Problem: Acute (4) Hypertension Assessment: She was prescribed 1.25 mg lisinopril and 50 mg metoprolol. She reports having a heart rhythm where it feels like it stops and kicks in, which improved after a "blood pressure medicine" was started, likely metoprolol. Problem: Chronic (5) History of pulmonary embolism Assessment: She has been taking Eliquis for a PE and a DVT for approximately a month. She did not take her Eliquis this morning, and will hold and restart postop. Problem: Acute
[2019-09-26 15:12] LABS: Hematocrit 39.4 % (37.0-47.0); Hemoglobin 12.8 gm/dL (12.5-16.0); Mean Cell Volume 98.3 fl (78-100); Mean Corpuscular Hemoglobin 31.9 pg (27-31); Mean Corpuscular Hgb Conc 32.5 g/dl (32-36); Mean Platelet Volume 9.7 fl (8-12.5); Neutrophil # 2.1 K/mm3 (1.3-6.0); Neutrophil % 44.8 % (42-75.0); Platelet Count 221 K/mm3 (150-450); Red Blood Count 4.01 M/mm3 (4.2-5.4); Red Cell Distribution Width 13.4 % (11.5-14.0); White Blood Count 4.7 K/mm3 (4.0-10.5)
[2019-09-26] MEDS ORDERED: ALPRAZolam 0.5 MG TABLET PO PRN (15:16)
[2019-09-26] MEDS ORDERED: PANTOPRAZOLE SODIUM 40 MG TABLET.EC PO PRN (15:16)
[2019-09-26 15:18] LABS: Albumin * 3.7 gm/dl (3.4-5.0); Anion Gap 9.2 mmol/L (6.8-13.8); BUN/Creatinine Ratio 8.7 (9.0-21.6); Bilirubin, Total 0.5 mg/dL (0.0-1.1); Ca. Corrected For Albumin 8.9 mg/dL (8.4-10.2); Carbon Dioxide 31.7 mmol/L (24-32.6); Potassium 3.9 mmol/L (3.4-4.6); Total Protein 6.2 gm/dL (6.2-8.2)
--- NOTE | 2019-09-26 16:15 | CONS ---
[facility] - General Date of Service: 09/26/19 Narrative: Mrs. Rosario is an 79-year-old female who lives at home independently with her significant other who runs her own errands and does her own chores who states in the last 1 to 2 weeks she is been having increasing pain to her right hip region with difficulty with weightbearing and having difficulties with activities of daily living. She states that she is having posterior and lateral pain with weightbearing and mobility. She was seen by her primary care physician initially with radiographs which were relatively unremarkable but had a CT scan which is concerning for a nondisplaced femoral neck fracture. She states prior to the last 1 to 2 weeks of pain she had some mild discomfort but no significant symptoms on the right side. She denies falls or any acute episode but notes that her pain is becoming more progressive and intense and making it more difficult for her to ambulate. Source: patient Exam Limitations: no limitations - History of Present Illness Timing/Duration: 1 week Severity: moderate Modifying Factors - (Worsens): Reports: movement Modifying Factors - (Improves): Reports: immobilization Associated Symptoms: denies symptoms Allergies/Adverse Reactions: Allergies tizanidine Allergy (Verified 09/24/19 09:21) cough, bad sore throat Home Medications: Home Medications Medication Instructions Recorded Last Taken Cyanocobalamin [Vitamin B-12] 500 mcg PO DAILY 08/31/16 Unknown Estradiol [Estrace Vaginal] 1 gm VG DAILY PRN 08/31/16 Unknown aspirin 325 mg tablet 81 mg PO DAILY 03/06/18 Unknown levetiracetam 250 mg tablet 250 mg PO TID tab 02/19/19 Unknown magnesium citrate 100 mg tablet 100 mg PO DAILY 02/19/19 Unknown alprazolam 0.5 mg tablet 0.5 mg PO TID PRN #30 tab 07/24/19 Unknown trazodone 100 mg tablet 100 mg PO HS #30 tab 07/25/19 Unknown Tocilizumab [Actemra] 162 mg SQ Q7D 09/23/19 Unknown Apixaban [Eliquis] 5 mg PO BID 09/26/19 Unknown Cyclobenzaprine HCl 10 mg PO DAILY PRN 09/26/19 Unknown Diphenhydramine HCl 50 mg PO Q6H PRN 09/26/19 Unknown Docusate Sodium [Colace] 100 mg PO BID 09/26/19 Unknown Esomeprazole Magnesium [Nexium] 40 mg PO DAILY PRN 09/26/19 Unknown HYDROcodone/ACETAMINOPHEN 1 ea PO BID 09/26/19 Unknown [Hydrocodon-Acetaminophen 5-325] Lisinopril 1.25 mg PO HS 09/26/19 Unknown Metoprolol Succinate [Toprol Xl] 25 mg PO DAILY 09/26/19 Unknown Prednisone 10 mg PO DAILY 09/26/19 Unknown Simvastatin 40 mg PO HS 09/26/19 Unknown Procedures Injection of steroid (04/06/11) Injection of therapeutic substance into joint or ligament (04/06/11) Injection or infusion of other therapeutic or prophylactic substance (04/06/11) Replacement of Right Knee Joint with Synthetic Substitute, Cemented, Open Approach (09/12/16) Review of Systems - Review of Systems Generalized/Overall Review: Present: No Symptoms Reported Physical Examination - Exam Narrative: Right lower extremity: Status post total knee arthroplasty, no ecchymosis, lacerations or abrasions about the hip. Tenderness over the lateral aspect of the hip. Pain with axial loading of the hip joint. Mild pain with resisted abduction and abduction. 4/5 strength throughout the right hip limited by pain in flexion, abduction abduction and rotation. She has pain with logroll at the extremes of internal and external rotation. She does not have any shortening or gross abnormal appearance to the leg. Palpable dorsalis pedis pulse. Sensation is intact light touch. Vital Signs: Vital Signs - Last Taken Temp 37.1 C 09/26/19 13:04 Pulse 79 09/26/19 13:04 Resp 14 09/26/19 13:04 BP 148/64 09/26/19 13:04 Pulse Ox 98 09/26/19 13:04 O2 Oxygen Delivery Method Room Air Constitutional: Present: Alert, Oriented x3 - Results and Findings: Narrative: X-rays and CT reviewed which shows a mid cervical/subcapital nondisplaced right femoral neck fracture with mild underlying degenerative change. Lab/Microbiology results last 24 hrs: Abnormal/Pending Laboratory Last 24 HRS 09/26/19 09/26/19 14:53 14:53 RBC 4.01 L MCH 31.9 H Immature Gran % (Auto) 1.30 H Immature Gran # (Auto) 0.06 H Monocytes % 10.0 H Sodium 143 H Plasma Sodium 143 H Est GFR (Non-Af Amer) 54 L D BUN/Creatinine Ratio 8.7 L ALT 17 L - Assessments/Findings (1) Fracture of femoral neck, right, closed Diagnosis(s): The plan will be percutaneous fixation of the right femoral neck fracture. Risks and recovery were discussed. She will need to hold her anticoagulation today and can be resumed on it postoperatively. She will receive IV Ancef preoperatively. I discussed with her admitting physician a scopolamine patch preoperatively in order to help assist with her postoperative nausea. Consent will be obtained. We reviewed the risks, benefits, alternatives treatment. Problem: Acute Qualifiers: Encounter type: initial encounter Qualified Code(s): S72.001A - Fracture of unspecified part of neck of right femur, initial encounter for closed fracture
[2019-09-26] MEDS: levETIRAcetam 500 MG TABLET PO SCH (17:21)
[2019-09-26] MEDS: HYDROcodone/ACETAMINOPHEN 1 EACH TABLET PO PRN (17:23)
[2019-09-26] MEDS: DOCUSATE SODIUM 100 MG CAPSULE PO SCH (20:18)
[2019-09-26] MEDS: traZODone HCL 50 MG TABLET PO SCH (20:18)
[2019-09-26] MEDS: HYDROcodone/ACETAMINOPHEN 1 EACH TABLET PO SCH (20:19)
[2019-09-26] MEDS ORDERED: LISINOPRIL 2.5 MG TABLET PO SCH (21:00)
[2019-09-27] MEDS ORDERED: ceFAZolin SODIUM 1 GM VIAL IV PRN (06:00)
[2019-09-27] MEDS ORDERED: SCOPOLAMINE HYDROBROMIDE 1.5 MG PATC TD ONE (06:12)
[2019-09-27] MEDS ORDERED: NORMAL SALINE 1,000 ML IV PRN (06:12)
[2019-09-27] MEDS ORDERED: ceFAZolin SODIUM 1 GM VIAL ONE (07:16)
--- NOTE | 2019-09-27 07:23 | ANES ---
Anesthesia Pre Procedure Eval Vitals/Labs: Last Vital Signs Temp 36.4 C 09/27/19 00:00 Pulse 66 09/27/19 00:00 Resp 16 09/27/19 00:00 BP 116/47 09/27/19 00:00 Pulse Ox 92 L 09/27/19 00:00 HOME MEDICATIONS Cyanocobalamin [Vitamin B-12] 500 mcg PO DAILY 08/31/16 [Last Taken Unknown] Estradiol [Estrace Vaginal] 1 gm VG DAILY PRN 08/31/16 [Last Taken Unknown] aspirin 325 mg tablet 81 mg PO DAILY 03/06/18 [Last Taken Unknown] levetiracetam 250 mg tablet 250 mg PO TID tab 02/19/19 [Last Taken Unknown] magnesium citrate 100 mg tablet 100 mg PO DAILY 02/19/19 [Last Taken Unknown] alprazolam 0.5 mg tablet 0.5 mg PO TID PRN #30 tab 07/24/19 [Last Taken Unknown] trazodone 100 mg tablet 100 mg PO HS #30 tab 07/25/19 [Last Taken Unknown] Tocilizumab [Actemra] 162 mg SQ Q7D 09/23/19 [Last Taken Unknown] Apixaban [Eliquis] 5 mg PO BID 09/26/19 [Last Taken Unknown] Cyclobenzaprine HCl 10 mg PO DAILY PRN 09/26/19 [Last Taken Unknown] Diphenhydramine HCl 50 mg PO Q6H PRN 09/26/19 [Last Taken Unknown] Docusate Sodium [Colace] 100 mg PO BID 09/26/19 [Last Taken Unknown] Esomeprazole Magnesium [Nexium] 40 mg PO DAILY PRN 09/26/19 [Last Taken Unknown] HYDROcodone/ACETAMINOPHEN [Hydrocodon-Acetaminophen 5-325] 1 ea PO BID 09/26/19 [Last Taken Unknown] Lisinopril 1.25 mg PO HS 09/26/19 [Last Taken Unknown] Metoprolol Succinate [Toprol Xl] 25 mg PO DAILY 09/26/19 [Last Taken Unknown] Prednisone 10 mg PO DAILY 09/26/19 [Last Taken Unknown] Simvastatin 40 mg PO HS 09/26/19 [Last Taken Unknown] Allergies/Adverse Reactions: Allergies Allergy/AdvReac Type Severity Reaction Status Date / Time tizanidine Allergy cough, bad Verified 09/24/19 09:21 sore throat - Planned Procedure Planned Procedure: ORIF right hip Medication List Reviewed:: Yes Allergies Verified: Yes Medical History (Last Reviewed 09/27/19 @ 07:22 by Jimmy Carrizales CRNA) Acute blood loss anemia (Chronic) Onset Date: Unknown Dysuria (Chronic) Onset Date: Unknown Hypertension (Chronic) Onset Date: Unknown Heart murmur (Chronic) Onset Date: Unknown Hyperlipidemia (Chronic) Onset Date: Unknown Cystocele (Chronic) Onset Date: Unknown Atrophic vaginitis (Chronic) Onset Date: Unknown History of pulmonary embolism Arrhythmia Onset Date: Unknown B12 deficiency Onset Date: ~2012 Breast neoplasm, malignant Onset Date: ~1997 left, lump removed GERD (gastroesophageal reflux disease) Onset Date: ~2012 Hypertension, essential Onset Date: ~2012 Osteoarthritis Onset Date: ~2012 Ovarian cyst Onset Date: Unknown Surgical History (Last Reviewed 09/27/19 @ 07:22 by Jimmy Carrizales CRNA) History of appendectomy Onset Date: ~1956 History of back surgery Onset Date: ~1991 laminectomy L4-L5 History of bladder surgery Onset Date: ~2004 Pessary History of dilation and curettage Onset Date: Unknown 2 or 3 History of hysterectomy Onset Date: ~1976 abd History of lumpectomy Onset Date: ~1989 left breast-cancer History of oophorectomy Onset Date: ~1976 half of ovary remaining History of temporal artery biopsy Onset Date: 05/13/19 [id number]. History of total knee arthroplasty Onset Date: ~2016 Dr. Driscoll-right Family History (Last Reviewed 09/27/19 @ 07:22 by Jimmy Carrizales CRNA) Brother Diabetes Brother Diabetes Father , age 75- Heart disease Alcoholism Mother , age 65 from [place] Breast cancer dx-age 50's Diabetes Brother Diabetes Heart disease Brother Cancer lung Brother , shot accidental No problems noted. - Airway/Neck/Teeth Within Normal Limits:: Yes Denture Type: Full upper Mallampatti Score: 2 Thyromental (T-M) distance: > 6 cm Mandibulo Hyoid distance: > 3 cm - Respiratory Respiratory Physical: lungs clear Discussed smoking cessation including day of surgery: No Sleep Apnea currently treated: No Sleep Apnea by current assessment: No Discussed Risks/Treatment of GUS: No - Cardiovascular Tolerate Activity: Fair Heart Sounds: S1 & S2, Regular - Gastrointestinal NPO since: mn - Anesthesia Assessment and Plan ASA Class: PS, III Anesthesia Type Plan: Spinal - History of posop nausea and delerium
[2019-09-27] MEDS ORDERED: ONDANSETRON HCL/PF 2 MG/ML VIAL ONE (07:25)
[2019-09-27] MEDS ORDERED: LIDOCAINE HCL 20 ML VIAL ONE (07:25)
[2019-09-27] MEDS ORDERED: fentaNYL CITRATE/PF 50 MCG/ML AMPUL ONE (07:25)
[2019-09-27] MEDS ORDERED: PROPOFOL VIAL IV ONE (07:25)
--- NOTE | 2019-09-27 08:04 | PN ---
Subjective - Date and Time Seen Date: 09/27/19 Time: 07:40 Subjective Narrative: Pt reports no new concerns overnight. Pain is controlled. Objective - Review of Systems Generalized/Overall Review: Denies: Fever Respiratory: Denies: Cough, Shortness of Breath Cardiac: Denies: Chest Pain, Edema Abdominal: Denies: Vomiting Genitourinary Symptoms: Reports: No Symptoms Reported Musculoskeletal Complaints: Reports: Joint Pain, Back Pain Skin: Reports: No Symptoms Reported - Vitals Vitals: Last Vital Signs Temp 36.4 C 09/27/19 00:00 Pulse 66 09/27/19 00:00 Resp 16 09/27/19 00:00 BP 116/47 09/27/19 00:00 Pulse Ox 92 L 09/27/19 00:00 - Abnormal Lab Findings Abnormal Lab Findings: Abnormal Lab Results 09/26/19 09/26/19 Range/Units 14:53 14:53 RBC 4.01 L (4.2-5.4) M/mm3 MCH 31.9 H (27-31) pg Immature Gran % (Auto) 1.30 H (0.001-0.429) % Immature Gran # (Auto) 0.06 H (0.000-0.0310) K/mm3 Monocytes % 10.0 H (0.0-9) % Sodium 143 H (132-142) mmol/L Plasma Sodium 143 H (130-142) mmol/L Est GFR (Non-Af Amer) 54 L D (60-130) mL/min BUN/Creatinine Ratio 8.7 L (9.0-21.6) ALT 17 L (19-67) U/L - Exam Constitutional: Present: Alert, Cooperative, No distress, Elderly Respiratory: Present: lungs clear, normal breath sounds Cardiovascular/Chest: Present: regular rate, rhythm Abdomen: Present: soft, nontender, other - glaser in place Extremity: Absent: lower extremity edema Eye contact: Present: cooperative Cauti Physician Documentation - Urinary Catheter Management Urethral (Glaser) Date of Insertion: 09/26/19 Time of Insertion: 18:54 Assessment/Plan - Problems/Diagnosis (1) Subcapital fracture of right femur Problem: Acute Narrative: NKI. She'll be going to the OR today for surgical fixation. she is prescribed bid lortab, and added additional doses of prn lortab so she has pain meds available q6h. PT/OT have been ordered. Appreciate their assistance, with case mgt, to help determine DC arrangements. Today is Monday, so if she requires rehab placement, she will be here for at least 3 additional midnights. (2) Temporal arteritis Problem: Chronic Narrative: She is seeing a corporate concierge at the [facility]. She reports being started on 60 mg of prednisone back in April. She is currently taking 12.5 mg prednisone, and will decrease to 10 mg next week. Discussed the high likelihood that her facial swelling she has been observing is from the steroid. (3) Arthritis Problem: Acute Narrative: She goes to a pain clinic and is prescribed Lortab and 250 mg Keppra 3 times daily for "pain and opioid use." (4) Hypertension Problem: Chronic Narrative: She was prescribed 1.25 mg lisinopril and 50 mg metoprolol. She reports having a heart rhythm where it feels like it stops and kicks in, which improved after a "blood pressure medicine" was started, likely metoprolol. I am not sure about the appropriateness of 1.25 mg lisinopril, as that is an extremely low dose. (5) History of pulmonary embolism Problem: Acute Narrative: She has been taking Eliquis for a PE and a DVT for approximately a month. Eliquis was held pre-op, and can restart 12 hours post-op.
[2019-09-27] MEDS ORDERED: ONDANSETRON HCL/PF 2 MG/ML VIAL IV PRN (09:12)
[2019-09-27] MEDS ORDERED: MAGNESIUM HYDROXIDE 30 ML UDC PO PRN (09:12)
[2019-09-27] MEDS ORDERED: MAG HYDROX/ALUMINUM HYD/SIMETH 30 ML UDC PO PRN (09:12)
[2019-09-27] MEDS ORDERED: RINGER'S SOLUTION,LACTATED 1,000 ML IV PRN (09:12)
[2019-09-27] MEDS ORDERED: ACETAMINOPHEN 500 MG TABLET PO PRN (09:12)
--- NOTE | 2019-09-27 09:12 | OR ---
Operative Report - Dictated Report Narrative: Date: 09/27/2019 Surgeon: Tone Driscoll M.D. Imaging Clerk: None Preoperative diagnosis: Closed right nondisplaced femoral neck fracture Postoperative diagnosis:Closed right nondisplaced femoral neck fracture Operations and procedures: 1. Percutaneous fixation right nondisplaced femoral neck fracture 2. Intraoperative interpretation of radiographs Anesthesia: Spinal Specimens: None Estimated blood loss: Minimal Retained implants: [employer] 7.3 millimeter 16 millimeter threads cannulated screws 105, 95, 90 millimeter lengths Complications: None Indications for procedure: Mrs. Rosario is a 79-year-old female increased hip pain and inability to weight- bear who reported without any specific injury. She was seen in the clinic and radiographs were obtained which were relatively unremarkable however a CT showed a nondisplaced femoral neck fracture. She was admitted to the hospital. Once the medical provider felt that they were stable for surgical treatment, the risks and benefits alternatives were discussed. The risks of , blood clots, bleeding, infection, nerve/tendon/blood vessel injury, malunion, nonunion, failure of implants, painful implants, arthrosis, and need for additional procedures were discussed. The extremity was marked and consent was obtained on the floor. Procedure: After marking the operative extremity on the floor, the patient was taken to the operating room. A timeout was performed. IV antibiotics consisting of Ancef were administered. A spinal anesthetic was induced by anesthesia, and the patient was then placed onto a fracture table with a well-padded perineal post. The nonoperative leg was placed in a well-padded traction boot in slight extension without any traction with an SCD on the leg. The operative leg was placed in a well-padded traction boot. No traction or manipulation was performed. Preliminary images were attained utilizing C-arm in both the AP and lateral views. This confirmed that we had obtained adequate visualization of the fracture as well as reduction. Next the hip was then prepped and draped in a standard sterile fashion. Next three guidewires were placed percutaneously in an inverted triangle fashion. The inferior screws placed centered on the lateral view and along the inferior neck cortex on the AP view. The 2 superior screws were placed along the anterior and posterior cortex on the lateral view and along the inferior portion of the superior cortex on the AP in order to obtain as long of screws as possible. This was done with a starting point above the level of the lesser trochanter. C-arm was utilized in order to confirm the placement and to ensure that the tips of the guidewires were not penetrating the joint. The screws were then measured, the outer cortex was drilled, and the 3 screws were placed, 105 mm inferior, 95 mm anterior, and 90 mm posterior, securing them to the bone on the lateral aspect providing fixation across the fracture. C-arm was again utilized to ensure that the screws were not into the joint and that they stabilized the fracture. The wounds were then thoroughly irrigated. Final images were obtained. The hip was placed through range of motion and showed no crepitance. The subcutaneous tissue with 3-0 Vicryl, and the skin was closed with romi. Sterile dressings of Xeroform, 4 x 4, and Tegaderm were applied. All sponge, sharp, and instrument counts were correct prior to closing the wounds. The patient was then awoken and transferred to the postanesthesia care unit in stable condition.
[2019-09-27] MEDS: RINGER'S SOLUTION,LACTATED 1,000 ML IV PRN ×2 (09:45→17:55)
[2019-09-27] MEDS: HYDROcodone/ACETAMINOPHEN 1 EACH TABLET PO SCH ×2 (10:35→20:06)
[2019-09-27] MEDS: levETIRAcetam 500 MG TABLET PO SCH ×3 (10:37→17:54)
[2019-09-27] MEDS: DOCUSATE SODIUM 100 MG CAPSULE PO SCH ×2 (10:37→20:07)
[2019-09-27] MEDS: predniSONE 10 MG TABLET PO SCH (10:38)
[2019-09-27] MEDS: METOPROLOL SUCCINATE 25 MG TABLET.SA PO SCH (10:38)
[2019-09-27] MEDS: ceFAZolin SODIUM 1 GM in DEXTROSE 5 % IN WATER 100 ML IV SCH ×6 (10:39→22:44)
--- NOTE | 2019-09-27 12:56 | ANES ---
Post Anesthesia Discharge - Transfer of Care Transfer of Care handoff given to nurse: Yes - Discharge from PACU Discharge from PACU when meets criteria: Yes - Discharge to ASU Discharge to ASU-no complications/pt stable: Yes
--- NOTE | 2019-09-27 12:56 | ANES ---
Post Anesthesia Assessment - Vital Signs Vitals: Last Vital Signs Temp 36.6 C 09/27/19 11:27 Pulse 64 09/27/19 11:27 Resp 20 09/27/19 11:27 BP 142/65 09/27/19 11:27 Pulse Ox 97 09/27/19 10:27 Airway Patency: Normal - Mental Status Level Of Consciousness: Awake - Pain Level Pain Score: 0 - N/V Assessment Nausea/Vomiting Presence: None Dehydration:: No
[2019-09-27] MEDS: HYDROcodone/ACETAMINOPHEN 1 EACH TABLET PO PRN ×2 (14:06→21:20)
[2019-09-27] MEDS: traZODone HCL 50 MG TABLET PO SCH (20:07)
[2019-09-27] MEDS ORDERED: SENNOSIDES/DOCUSATE SODIUM 1 TAB TABLET PO SCH (21:00)
[2019-09-28] MEDS: HYDROcodone/ACETAMINOPHEN 1 EACH TABLET PO PRN (05:44)
[2019-09-28] MEDS ORDERED: APIXABAN 5 MG TABLET PO SCH (07:00)
[2019-09-28] MEDS: HYDROcodone/ACETAMINOPHEN 1 EACH TABLET PO SCH (08:36)
[2019-09-28] MEDS: DOCUSATE SODIUM 100 MG CAPSULE PO SCH (08:36)
[2019-09-28] MEDS: METOPROLOL SUCCINATE 25 MG TABLET.SA PO SCH (08:36)
[2019-09-28] MEDS: levETIRAcetam 500 MG TABLET PO SCH ×2 (08:36→13:15)
[2019-09-28] MEDS: predniSONE 10 MG TABLET PO SCH (08:37)
--- NOTE | 2019-09-28 09:37 | PN ---
Subjective - Date and Time Seen Date: 09/28/19 Time: 09:36 Objective - Vitals Vitals: Last Vital Signs Temp 36.4 C 09/28/19 06:46 Pulse 63 09/28/19 08:36 Resp 16 09/28/19 06:46 BP 159/69 H 09/28/19 08:36 Pulse Ox 98 09/28/19 06:46 Cauti Physician Documentation - Urinary Catheter Management Urethral (James) Date of Insertion: 09/26/19 Time of Insertion: 18:54 Date of Removal: 09/28/19 Time of Removal: 05:00 Assessment/Plan - Problems/Diagnosis (1) Subcapital fracture of right femur Problem: Acute (2) Temporal arteritis Problem: Chronic (3) Arthritis Problem: Acute (4) Hypertension Problem: Chronic (5) History of pulmonary embolism Problem: Acute
--- NOTE | 2019-09-28 10:00 | DS ---
(1) Subcapital fracture of right femur Problem: Acute (2) Temporal arteritis Problem: Chronic (3) Arthritis Problem: Acute (4) Hypertension Problem: Chronic (5) History of pulmonary embolism Problem: Acute Date of Discharge:: 09/28/19 Hospital Course: Patient with past medical history of hypertension, recent pulmonary embolism and DVT on Eliquis, temporal arteritis on steroid taper, arthritis. She had stabbing right hip pain for somewhere between 2 and 4 weeks. She went to the ER, and hip x-rays were negative. She then went to her PCP who ordered a CT, which showed "SUBTLE HORIZONTAL BONY SCLEROSIS INVOLVING THE SUBCAPITAL REGION OF THE RIGHT FEMUR. THIS MAY REFLECT AN INCOMPLETE FRACTURE." She was evaluated by ortho, and underwent percutaneous fixation right nondisplaced femoral neck fracture on 09/27/19. The surgery resolved the stabbing hip pain she'd been having, and her pain was controlled with po norco. She is to keep the incision clean and dry. She felt comfortable going home on the day of DC. She declines home health services. Procedures Performed: see notes below - Percutaneous fixation right nondisplaced femoral neck fracture Results and Findings: Lab Pending Results 09/26/19 14:53: WBC 4.7, RBC 4.01 L, Hgb 12.8, Hct 39.4, MCV 98.3, MCH 31.9 H, MCHC 32.5, RDW 13.4, Plt Count 221, MPV 9.7, Immature Gran % (Auto) 1.30 H, Immature Gran # (Auto) 0.06 H, Neutrophils % 44.8, Lymphocytes % 41.5, Monocytes % 10.0 H, Eosinophils % 1.5, Basophils % 0.9, Nucleated RBC % 0.0, Neutrophils # 2.1, Lymphocytes # 1.94, Monocytes # 0.5, Eosinophils # 0.1, Absolute Basophils 0.0 09/26/19 14:53: Sodium 143 H, Plasma Sodium 143 H, Potassium 3.9, Chloride 106, Carbon Dioxide 31.7, Anion Gap 9.2, BUN 9, Creatinine 1.04, Est GFR (Non-Af Amer) 54 L D, BUN/Creatinine Ratio 8.7 L, Random Glucose 97, Calcium 9.0, Calcium Adj for Albumin 8.9, Total Bilirubin 0.5, AST 23, ALT 17 L, Alkaline Phosphatase 50, Total Protein 6.2, Albumin 3.7 Discharge Location: Home Disposition: Home self-care Condition: Good Discharge Activity: Activity as tolerated Discharge Diet: Resume usual diet Referrals: Laura Bailey MD [Primary Care Provider] - One Week Tone Driscoll MD [Staff Physician] - Two Weeks (2-3 weeks) Consultation Done:: Dr. Driscoll Additional Patient Instructions (free text): Keep dressing clean and dry until your follow up appointment. Follow up with ortho in 2-3 weeks. Prescriptions (Any new or edited meds): HYDROcodone/ACETAMINOPHEN [[place] 5-325] 1 ea PO Q6H PRN #30 tab PRN Reason: Pain Transmission Status: Received by [facility] #[id number] Complete Home Medications List: Complete Home Medication List: Cyanocobalamin [Vitamin B-12] 500 mcg PO DAILY 08/31/16 Estradiol [Estrace Vaginal] 1 gm VG DAILY PRN 08/31/16 aspirin 325 mg tablet 81 mg PO DAILY 03/06/18 levetiracetam 250 mg tablet 250 mg PO TID tab 02/19/19 magnesium citrate 100 mg tablet 100 mg PO DAILY 02/19/19 alprazolam 0.5 mg tablet 0.5 mg PO TID PRN #30 tab 07/24/19 trazodone 100 mg tablet 100 mg PO HS #30 tab 07/25/19 Tocilizumab [Actemra] 162 mg SQ Q7D 09/23/19 Apixaban [Eliquis] 5 mg PO BID 09/26/19 Cyclobenzaprine HCl 10 mg PO DAILY PRN 09/26/19 Diphenhydramine HCl 50 mg PO Q6H PRN 09/26/19 Docusate Sodium [Colace] 100 mg PO BID 09/26/19 Esomeprazole Magnesium [Nexium] 40 mg PO DAILY PRN 09/26/19 HYDROcodone/ACETAMINOPHEN [Hydrocodone-Acetamin 5-325 mg] 1 ea PO BID 09/26/19 Lisinopril 1.25 mg PO HS 09/26/19 Metoprolol Succinate [Toprol Xl] 25 mg PO DAILY 09/26/19 Prednisone 10 mg PO DAILY 09/26/19 Simvastatin 40 mg PO HS 09/26/19 HYDROcodone/ACETAMINOPHEN [[place] 5-325] 1 ea PO Q6H PRN #30 tab 09/28/19
--- NOTE | 2019-09-28 11:28 | PN ---
Subjective - Date and Time Seen Date: 09/28/19 Time: 11:26 Subjective Narrative: Subjective: Reports no concerns. Was able to walk in the bui with therapy. Pain is well-controlled. Voiding without any complications. Tolerating by mouth intake. Denies any nausea or vomiting. Denies calf pain. Slept well. Physical exam: Alert and oriented to person, place and time Right lower extremity: Palpable dorsalis pedis pulse. Sensation grossly intact to light touch. Dressings clean dry. Able to flex and extend ankle and toes. No excessive drainage. Calf and thigh are soft and nontender. Assessment: Postop day 1 status post percutaneous fixation of right nondisplaced femoral neck fracture. Plan: Continue with physical and occupational therapy weightbearing as tolerated. Continue with anticoagulation. 24 hours postoperative prophylactic antibiotics. Pain control with goal to rely on oral medications. Continue bowel regimen. Will need 6 weeks with walker or assitive device to protect joint while ambulating during the recovery process. Discharge planning. She will follow-up in 2 to 3 weeks with orthopedics. Keep her wound clean and dry and cover with dry gauze and tape if the bandages soiled or becomes loose. Do not bathe the wound. Call with any concerns. Okay for discharge. Objective - Vitals Vitals: Last Vital Signs Temp 36.4 C 09/28/19 06:46 Pulse 63 09/28/19 08:36 Resp 16 09/28/19 06:46 BP 159/69 H 09/28/19 08:36 Pulse Ox 98 09/28/19 06:46 Cauti Physician Documentation - Urinary Catheter Management Urethral (James) Date of Insertion: 09/26/19 Time of Insertion: 18:54 Date of Removal: 09/28/19 Time of Removal: 05:00 Assessment/Plan - Problems/Diagnosis (1) Fracture of femoral neck, right, closed Problem: Acute Qualifiers: Encounter type: subsequent encounter Fracture healing: with routine healing Qualified Code(s): S72.001D - Fracture of unspecified part of neck of right femur, subsequent encounter for closed fracture with routine healing
[2019-09-28 13:06] VITALS: BP 153/56
== END 2019-09-28 13:16 | disposition home or self-care (01) | DRG 482 ==
LOC: MS 12:19
PROVIDERS: ADMIT Family Medicine; ATTEND Family Medicine
DX: I10 Essential (primary) hypertension; S72.011A Unspecified intracapsular fracture of right femur, initial encounter for closed fracture; E78.5 Hyperlipidemia, unspecified; Z86.718 Personal history of other venous thrombosis and embolism; M31.6 Other giant cell arteritis; Z86.711 Personal history of pulmonary embolism; Z79.01 Long term (current) use of anticoagulants
CPT/HCPCS: 36415; 73502; 80053; 85025; 93005; 97110; 97116; 97161; 97165; J2405

== ENCOUNTER 2020-10-05 07:39 | Inpatient (IN) ==
[~2020-10-05 07:39] MED LIST: MORPHINE SULFATE 15 MG TABLET.SA PO PRN; ROPIVACAINE/CLONIDIN/KETOROLAC 50 ML SYRINGE IJ PRN; TRANEXAMIC ACID 1,000 MG in NORMAL SALINE 100 ML IV PRN; ceFAZolin SODIUM 1 GM VIAL IV PRN
[2020-10-05] MEDS: RINGER'S SOLUTION,LACTATED 1,000 ML IV PRN ×2 (08:42→10:50)
[2020-10-05] MEDS ORDERED: ceFAZolin SODIUM 1 GM VIAL ONE (08:53)
[2020-10-05] MEDS ORDERED: ROPIVACAINE/CLONIDIN/KETOROLAC 50 ML SYRINGE IJ ONE ×2 (08:53→09:59)
[2020-10-05] MEDS ORDERED: SCOPOLAMINE HYDROBROMIDE 1.5 MG PATC TD ONE (08:58)
--- NOTE | 2020-10-05 09:00 | ANES ---
Anesthesia Pre Procedure Eval Vitals/Labs: Last Vital Signs Temp 37.6 C 10/05/20 07:53 Pulse 84 10/05/20 07:53 Resp 14 10/05/20 07:53 BP 124/67 10/05/20 07:53 Pulse Ox 97 10/05/20 07:53 HOME MEDICATIONS Cyanocobalamin [Vitamin B-12] 500 mcg PO DAILY 08/31/16 [Last Taken Unknown] Estradiol [Estrace Vaginal] 1 gm VG DAILY PRN 08/31/16 [Last Taken Unknown] aspirin 325 mg tablet 81 mg PO DAILY 03/06/18 [Last Taken 09/27/20] levetiracetam 250 mg tablet 250 mg PO TID tab 02/19/19 [Last Taken Unknown] magnesium citrate 100 mg tablet 100 mg PO DAILY 02/19/19 [Last Taken Unknown] Tocilizumab [Actemra] 162 mg SQ Q7D 09/23/19 [Last Taken 09/29/20] Cyclobenzaprine HCl 10 mg PO DAILY PRN 09/26/19 [Last Taken Unknown] Diphenhydramine HCl 50 mg PO Q6H PRN 09/26/19 [Last Taken Unknown] Docusate Sodium [Colace] 100 mg PO BID 09/26/19 [Last Taken Unknown] lisinopril 2.5 mg tablet 1.25 mg PO HS #45 tab 01/01/20 [Last Taken Unknown] metoprolol succinate 25 mg tablet,extended release 24 hr 25 mg PO DAILY #90 tab 03/19/20 [Last Taken 10/05/20 0600] simvastatin 40 mg tablet 40 mg PO HS #90 tab 05/12/20 [Last Taken Unknown] apixaban 5 mg tablet 5 mg PO BID #60 tab 06/22/20 [Last Taken 09/27/20] trazodone 100 mg tablet 100 mg PO HS #30 tab 06/22/20 [Last Taken Unknown] alprazolam 0.5 mg tablet 0.5 mg PO TID PRN #30 tab 06/23/20 [Last Taken Unknown] hydrocodone 5 mg-acetaminophen 325 mg tablet 1 tab PO Q6H PRN #30 tab MDD 6 06/23/20 [Last Taken Unknown] furosemide 20 mg tablet 20 mg PO DAILY PRN #30 tab 08/28/20 [Last Taken Unknown] Allergies/Adverse Reactions: Allergies Allergy/AdvReac Type Severity Reaction Status Date / Time tizanidine AdvReac Intermediate cough, bad Verified 10/05/20 08:12 sore throat - Planned Procedure Planned Procedure: R Arthroplasty Total Hip Medication List Reviewed:: Yes Allergies Verified: Yes Medical History (Last Reviewed 10/05/20 @ 08:59 by Ciro Howard CRNA) Acute blood loss anemia (Chronic) Onset Date: Unknown Dysuria (Chronic) Onset Date: Unknown Hypertension (Chronic) Onset Date: Unknown Heart murmur (Chronic) Onset Date: Unknown Hyperlipidemia (Chronic) Onset Date: Unknown Cystocele (Chronic) Onset Date: Unknown Atrophic vaginitis (Chronic) Onset Date: Unknown History of pulmonary embolism Arrhythmia Onset Date: Unknown B12 deficiency Onset Date: ~2012 Breast neoplasm, malignant Onset Date: ~1997 left, lump removed GERD (gastroesophageal reflux disease) Onset Date: ~2012 Hypertension, essential Onset Date: ~2012 Osteoarthritis Onset Date: ~2012 Ovarian cyst Onset Date: Unknown Surgical History (Last Reviewed 10/05/20 @ 08:59 by Ciro Howard CRNA) History of hip surgery Status post hardware removal Onset Date: ~07/13/20 Removal of deep implants right femoral neck Dr. Driscoll History of appendectomy Onset Date: ~1956 History of back surgery Onset Date: ~1991 laminectomy L4-L5 History of bladder surgery Onset Date: ~2004 Pessary History of dilation and curettage Onset Date: Unknown 2 or 3 History of hysterectomy Onset Date: ~1976 abd History of lumpectomy Onset Date: ~1989 left breast-cancer History of oophorectomy Onset Date: ~1976 half of ovary remaining History of temporal artery biopsy Onset Date: 05/13/19 [id number]. History of total knee arthroplasty Onset Date: ~2016 Dr. Driscoll-right Family History (Last Reviewed 10/05/20 @ 08:59 by Ciro Howard CRNA) Brother Diabetes Brother Diabetes Father , age 75- Heart disease Alcoholism Mother , age 65 from [place] Breast cancer dx-age 50's Diabetes Brother Diabetes Heart disease Brother Cancer lung Brother , shot accidental No problems noted. - Family Anesthesia History Family History:: no untoward family reactions to anesthesia - Airway/Neck/Teeth Denture Type: Full upper Neck Exam: limited range of motion Mallampatti Score: 2 Thyromental (T-M) distance: > 6 cm Mandibulo Hyoid distance: > 3 cm - Respiratory Respiratory History: PE Respiratory Physical: lungs clear Smoking Status: Never smoker Sleep Apnea currently treated: No Sleep Apnea by current assessment: No - Cardiovascular Cardiac History: hypertension Tolerate Activity: Fair Heart Sounds: S1 & S2, Regular - Gastrointestinal NPO since: [place] - Anesthesia Assessment and Plan ASA Class: PS, III Anesthesia Type Plan: General ET Planned difficult intubation/equipment available: No
[2020-10-05] MEDS ORDERED: DEXAMETHASONE SODIUM PHOSPHATE 10 MG/ML VIAL ONE (09:06)
[2020-10-05] MEDS ORDERED: GLYCOPYRROLATE 0.2 MG/ML VIAL ONE (09:06)
[2020-10-05] MEDS ORDERED: NEOSTIGMINE METHYLSULFATE 1 MG/ML VIAL ONE (09:06)
[2020-10-05] MEDS ORDERED: ONDANSETRON HCL/PF 2 MG/ML VIAL ONE (09:06)
[2020-10-05] MEDS ORDERED: ROCURONIUM BROMIDE 10 MG/ML VIAL ONE (09:07)
[2020-10-05] MEDS ORDERED: NORMAL SALINE 20 ML VIAL ONE (09:07)
[2020-10-05] MEDS ORDERED: SEVOFLURANE 250 ML BTL IH ONE (09:15)
[2020-10-05] MEDS ORDERED: ZOLPIDEM TARTRATE 5 MG TABLET PO PRN (11:26)
[2020-10-05] MEDS ORDERED: MAG HYDROX/ALUMINUM HYD/SIMETH 30 ML UDC PO PRN (11:26)
[2020-10-05] MEDS ORDERED: DEXTROSE 5%-LACTATED RINGERS 1,000 ML IV PRN (11:26)
[2020-10-05] MEDS ORDERED: ONDANSETRON HCL/PF 2 MG/ML VIAL IV PRN (11:26)
[2020-10-05] MEDS ORDERED: diphenhydrAMINE HCL 50 MG/ML VIAL IV PRN (11:26)
[2020-10-05] MEDS ORDERED: MAGNESIUM HYDROXIDE 30 ML UDC PO PRN (11:26)
[2020-10-05] MEDS ORDERED: ACETAMINOPHEN 500 MG TABLET PO PRN (11:26)
[2020-10-05] MEDS ORDERED: MORPHINE SULFATE 2 MG/ML DISP.SYRIN IV PRN (11:26)
[2020-10-05] MEDS ORDERED: diphenhydrAMINE HCL 25 MG CAPSULE PO PRN (11:29)
[2020-10-05] MEDS ORDERED: ESTRADIOL 42.5 APPL TUBE VG PRN (11:29)
[2020-10-05] MEDS ORDERED: CYCLOBENZAPRINE HCL 10 MG TABLET PO PRN (11:29)
[2020-10-05] MEDS ORDERED: FUROSEMIDE 20 MG TABLET PO PRN (11:29)
[2020-10-05] MEDS ORDERED: ALPRAZolam 0.5 MG TABLET PO PRN (11:29)
--- NOTE | 2020-10-05 11:33 | OR ---
Operative Report - Dictated Report Narrative: Date: 10/05/2020 Preoperative diagnosis: Right hip avascular necrosis. Postoperative diagnosis: Right hip avascular necrosis. Procedure: Right total hip arthroplasty. Surgeon: Tone Driscoll M.D. Grants Administrator: Lincoln Hussein PA-C (provided an essential set of skilled, educated and assisted with transfer, positioning, prepping, draping, manipulation, traction, irrigation, suturing, and placement of dressings all of which cannot be performed by the available surgical crew) Anesthesia: General and local periarticular joint injection. Complications: None Specimens: Bone. Estimated blood loss: 150 milliliters. Retained implants: Depuy [place] size 6 femoral stem standard offset. Size 56 millimeter outside diameter 3-hole [place] Gription acetabular cup. 56 millimeter outside by 40 millimeter inside diameter highly cross-linked acetabular liner. 40 millimeter diameter +5 millimeter cobalt chromium femoral head. Cancellous 6.5mm screw 30 millimeter length Indications: Mrs. Rosario is a 80-year-old female who previously sustained a right femoral neck fracture which was treated with fixation and subsequent removal of deep implants. She developed avascular necrosis with degenerative changes to her hip and noted pain. This patient was followed in my clinic for period of time with significant complaints of right hip pain consistent with arthritic changes. She failed conservative measures including but not limited to activity modification, passage of time, medications, and other conservative measures. Patient wished to proceed with surgical treatment. The risks, benefits, and alternatives were discussed in clinic. The risks of , blood clots, bleeding, infection, nerve/tendon blood vessel/ injury, malposition of components, dislocation and/or instability of joint, intraoperative fracture, postoperative limited range of motion, persistent pain, failure of components, and need for additional procedures. Patient wished to proceed. Consent was obtained after answering all questions. Procedure: After marking the correct extremity on the floor, the patient was taken to the operating room. A timeout was performed. IV antibiotics consisting of Ancef were administered prior to the procedure. A general anesthetic was induced by anesthesia. A James catheter was inserted. The patient was then transitioned to a lateral position on a well-padded pegboard. An axillary roll was placed. The head was in neutral position. The non-op erative down leg was well-padded with SCD and SAMANTHA hose in place. The arms were supported and padded to protect from any undue pressure on the bony prominences and nerves. A well-padded anterior and posterior pelvic and chest posts were secured in order to maintain a stable position of the pelvis. This was placed so that the pelvis was perpendicular to the floor. The body was in line with the pelvis. Once it was felt that we had protected all the bony prominences and the patient was well secured with a safety belt as well, the leg was pre- scrubbed with alcohol, prepped and draped in a standard sterile fashion. A standard anterior lateral hip incision was marked out over the greater trochanter. Ioban drapes were then placed. The skin incision was then made. Sharp dissection with a scalpel utilizing cautery for hemostasis was carried out down to the gluteus and iliotibial band fascia. This was split in line with the skin incision. The greater trochanter bursa was excised. The anterior and posterior margins of the abductor tendon were identified. The anterior 1/2-1/3 of the tendon was tagged and reflected off the greater trochanter leaving a sleeve of tendon for repair at the completion of the case. This exposed the underlying hip joint capsule. An inverted T-type capsulotomy was made extending this up to the brim of the acetabulum. Using Homans to assist with el evation of the soft tissues off the anterior, superior, and inferior aspects of the femoral neck, the hip was then placed in a figure 4 position and the femoral head was dislocated. With the leg in an externally rotated and adducted position, the cutting flag was utilized in order to yas for a standard femoral neck cut approximately a fingerbreadth above the level of the lesser trochanter. This was done with reference to pre-operative films and overall alignment. This was done while protecting the surrounding soft tissues with Homans. The femoral head was then removed and sized for guidance on preparation of the acetabulum. It was noted that there was loss of articular cartilage on both the femoral head and weightbearing portions of the acetabulum. We then returned the leg to the table and turned our attention to the acetabulum. While protecting the surrounding soft tissues, the labrum and remaining tissue in the fovea were excised using a scalpel and cautery. A series of reamers up to size 56 millimeter were utilized to prepare the acetabulum. The final reamer had good purchase and exposed the bleeding subchondral bone. The acetabulum was then thoroughly irrigated ensuring that all bony and cartilaginous materials were removed, and the final acetabular shell was impacted into place. This was placed in approximately 45 degrees of abduction and 20 degrees of anteversion utilizing the outrigger and body axis for alignment. This had a good press fit. 1 6.5mm cancellous screw was placed in the superior posterior quadrant of the acetabulum. The shell was then thoroughly irrigated and the final polyethylene was impacted into place ensuring that it seated completely. This was then protected with a sponge while we returned our attention to the femur. With the leg in a figure 4 position, utilizing Homans for soft tissue protection, a box cutting osteotome, followed by Charnley awl, followed by serial reamers and broaches were utilized in order to prepare the femur. It was found that a size 6 broach gave good axial and rotational stability. The calcar reamer was utilized in order to clean up the cut edges. The proximal femur was visualized to ensure that there were no signs of fracture. A series of heads and necks were trialed. It was found that a standard offset neck and a + 5 femoral head gave good overall stability. There was minimal longitudinal instability. With the leg in the position of sleep, the femoral head was well covered. Hip range of motion was able to reach full extension and external rotation to greater than 75 degrees prior to impingement along the posterior acetabulum. The hip was able to be flexed to greater than 90 degrees with internal rotation greater than 60 degrees prior to anterior impingement. The limb lengths were near equal based on comparison to the contralateral side and the prior placed limb length stitch. At this point it was felt these were the appropriately sized femoral components as well as neck and femoral head. The trial implants were removed. The femur was thoroughly irrigated. The final implants were impacted into place, and the hip was reduced. After ensuring that there was no damage to the proximal femur, the standard periarticular joint injection of ropivacaine, Toradol, and epinephrine were injected into the joint capsule and surrounding soft tissues. Anesthesia then administered intravenous tranexamic acid. The capsule was repaired with a single interrupted #1 Vicryl. The abductor tendon was repaired to the greater trochanter utilizing #5 Ethibond through drill holes. This was oversewn with #1 Vicryl. The fascia was closed with interrupted #1 Vicryl and #1 Stratafix barbed suture. The wounds were thoroughly irrigated as we closed in layers. The deep and subcutaneous fat layers were closed with 0 and 3-0 Vicryl respectively. The subcutaneous tissue was closed with a running 3-0 Vicryl and the skin romi. All sponge, needle, blade, and instrument counts were correct prior to closing the wounds. Sterile dressings consisting of xeroform, 4 x 4's, and tape were applied. The patient was awoken and transferred to her hospital bed and then to the postanesthesia care unit in stable condition. Postoperative condition: The plan is to admit to the medical/surgical inpatient floor postoperatively. There will be a projected 1 to 3 day hospital stay. Postoperatively 24 hours of IV antibiotics, pain control, physical therapy, occupational therapy, and medical comanagement will be utilized. Patient will be weightbearing as tolerated with anterior hip precautions. Postoperative films will be obtained in the recovery room.
--- NOTE | 2020-10-05 12:30 | ANES ---
Post Anesthesia Discharge - Transfer of Care Transfer of Care handoff given to nurse: Yes - Discharge from PACU Discharge from PACU when meets criteria: Yes
--- NOTE | 2020-10-05 12:30 | ANES ---
Post Anesthesia Assessment - Vital Signs Vitals: Last Vital Signs Temp 36.0 C 10/05/20 12:15 Pulse 73 10/05/20 12:15 Resp 12 10/05/20 12:15 BP 133/53 10/05/20 12:15 Pulse Ox 93 10/05/20 12:15 Airway Patency: Normal - Mental Status Level Of Consciousness: Awake - Pain Level Pain Score: 2 - N/V Assessment Nausea/Vomiting Presence: None Dehydration:: No
[2020-10-05] MEDS: KETOROLAC TROMETHAMINE 15 MG/ML VIAL IV SCH ×2 (12:39→18:46)
[2020-10-05] MEDS: HYDROcodone/ACETAMINOPHEN 1 EACH TABLET PO PRN ×2 (13:28→19:04)
[2020-10-05] MEDS: ceFAZolin SODIUM 1 GM in DEXTROSE 5 % IN WATER 100 ML IV SCH ×4 (13:48→18:47)
[2020-10-05] MEDS: levETIRAcetam 250 MG TABLET PO SCH ×2 (13:51→17:25)
[2020-10-05] MEDS ORDERED: LISINOPRIL 2.5 MG TABLET PO SCH (21:00)
[2020-10-05] MEDS ORDERED: traZODone HCL 50 MG TABLET PO SCH (21:00)
[2020-10-05] MEDS ORDERED: SIMVASTATIN 40 MG TABLET PO SCH (21:00)
[2020-10-05] MEDS ORDERED: SENNOSIDES/DOCUSATE SODIUM 1 TAB TABLET PO SCH (21:00)
[2020-10-06] MEDS: ceFAZolin SODIUM 1 GM in DEXTROSE 5 % IN WATER 100 ML IV SCH ×2 (00:34)
[2020-10-06] MEDS: KETOROLAC TROMETHAMINE 15 MG/ML VIAL IV SCH ×2 (00:34→06:29)
[2020-10-06 06:34] LABS: Anion Gap 10.6 mmol/L (6.8-13.8); BUN/Creatinine Ratio 12.6 (9.0-21.6); Calcium * 8.7 mg/dL (7.9-10.9); Estimated Creat Clear 49.5; Potassium 4.6 mmol/L (3.4-4.6)
[2020-10-06] MEDS: HYDROcodone/ACETAMINOPHEN 1 EACH TABLET PO PRN (06:37)
[2020-10-06 06:51] LABS: Hematocrit 30.4 % (37.0-47.0); Hemoglobin 10.1 gm/dL (12.5-16.0); Mean Cell Volume 96.8 fl (78-100); Mean Corpuscular Hemoglobin 32.2 pg (27-31); Mean Corpuscular Hgb Conc 33.2 g/dl (32-36); Mean Platelet Volume 9.9 fl (8-12.5); Platelet Count 182 K/mm3 (150-450); Red Blood Count 3.14 M/mm3 (4.2-5.4); White Blood Count 9.7 K/mm3 (4.0-10.5)
[2020-10-06] MEDS: levETIRAcetam 250 MG TABLET PO SCH (08:12)
[2020-10-06] MEDS ORDERED: HYDROcodone/ACETAMINOPHEN 1 EACH TABLET PO PRN (08:48)
[2020-10-06] MEDS ORDERED: METOPROLOL SUCCINATE 25 MG TABLET.SA PO SCH (09:00)
[2020-10-06] MEDS ORDERED: APIXABAN 5 MG TABLET PO SCH (09:00)
[2020-10-06] MEDS ORDERED: CYANOCOBALAMIN 1,000 MCG TABLET PO SCH (09:00)
[2020-10-06] MEDS ORDERED: ENOXAPARIN SODIUM 40 MG/0.4 ML SYRG SC SCH (10:26)
[2020-10-06 12:06] VITALS: BP 106/46
--- NOTE | 2020-10-06 12:35 | DS ---
(1) Status post right hip replacement Problem: Acute (2) History of pulmonary embolism Problem: Chronic (3) Atrophic vaginitis Problem: Chronic (4) Cystocele Problem: Chronic (5) Heart murmur Problem: Chronic (6) Hyperlipidemia Problem: Chronic (7) Hypertension Problem: Chronic (8) Temporal arteritis Problem: Chronic Date of Discharge:: 10/06/20 Hospital Course: Mrs. Rosario was admitted to the floor after undergoing right total hip arthroplasty. Tolerated this well. Was admitted to the floor postoperatively for 24 hours of IV antibiotics, pain control, medical comanagement, and occupational and physical therapy. OT and PT were consulted to assist with activities of daily living and ambulation. Was made weightbearing as tolerated with anterior hip precautions. Pain was initially controlled with IV regimen. This was transitioned to oral once tolerating a by mouth intake. Was resumed on home diet and medications. A James catheter was inserted in the operating room which was discontinued by postoperative day 1. Lovenox, SCDs, and SAMANTHA hose were utilized for DVT prophylaxis. Vital signs remained stable to the hospital course. Labs were obtained which showed a final hemoglobin of 10.1 grams. BMP was reviewed and was stable. Physical examination throughout the hospital course showed an extremity that had sensation that was intact to light touch, palpable pulses, a benign wound, motor intact to the toes, ankle, and knee. Due to her situation at home as well as some slow progression with therapy was felt that she would benefit from continued therapy at a halfway facility. She is being transferred to the medicine today. Instructions: Continue with weightbearing as tolerated and anterior hip precautions. Do not bathe or soak the wound. Keep the wound clean and dry and cover with dry gauze and tape. Change every 2-3 days as needed if there is any drainage. Cover wound while showering. Continue with physical therapy. Resume home diet. Report any fever over 101.5 Fahrenheit, uncontrolled pain, increased drainage, foul odor of drainage, new or increased calf pain or shortness of breath, or any other significant complaints. Continue with SAMANTHA hose on the operative extremity until instructed otherwise. No driving until instructed otherwise. Follow up in approximately 2-3 weeks. Procedures Performed: see notes below List Procedures: Right total hip arthroplasty Results and Findings: Lab Pending Results 10/06/20 06:23: WBC 9.7, RBC 3.14 L, Hgb 10.1 L, Hct 30.4 L, MCV 96.8, MCH 32.2 H, MCHC 33.2, RDW 12.0, Plt Count 182, MPV 9.9 10/06/20 06:23: Sodium 139, Plasma Sodium 139, Potassium 4.6, Chloride 105, Carb on Dioxide 28.0, Anion Gap 10.6, BUN 12, Creatinine 0.95, Est GFR (Non-Af Amer) 60, BUN/Creatinine Ratio 12.6, Random Glucose 129 H, Calcium 8.7 Discharge Location: [facility] Disposition: SNF Condition: Good Discharge Activity: Weight bearing, Other - Anterior hip precautions with no active abduction Discharge Diet: General/regular food Halfway Therapy: Physical Therapy, Occupation Therapy Referrals: Laura Bailey MD [Primary Care Provider] - Additional Patient Instructions (free text): [facility] for therapies, PT and OT to evaluate and treat. Follow up [facility] Orthopedic office appointment on MondayOctober 14 at 8:45am. Prescriptions (Any new or edited meds): HYDROcodone/ACETAMINOPHEN [[place] 5-325] 1 ea PO Q4H PRN #40 tab PRN Reason: Pain Transmission Status: Sent to [facility] Sennosides/Docusate Sodium [Senokot-S] 2 tab PO HS #60 tab Transmission Status: Pending to [facility] Complete Home Medications List: Complete Home Medication List: Cyanocobalamin [Vitamin B-12] 500 mcg PO DAILY 08/31/16 Estradiol [Estrace Vaginal] 1 gm VG DAILY PRN 08/31/16 aspirin 325 mg tablet 81 mg PO DAILY 03/06/18 levetiracetam 250 mg tablet 250 mg PO TID tab 02/19/19 magnesium citrate 100 mg tablet 100 mg PO DAILY 02/19/19 Tocilizumab [Actemra] 162 mg SQ Q7D 09/23/19 Cyclobenzaprine HCl 10 mg PO DAILY PRN 09/26/19 Diphenhydramine HCl 50 mg PO Q6H PRN 09/26/19 Docusate Sodium [Colace] 100 mg PO BID 09/26/19 lisinopril 2.5 mg tablet 1.25 mg PO HS #45 tab 01/01/20 metoprolol succinate 25 mg tablet,extended release 24 hr 25 mg PO DAILY #90 tab 03/19/20 simvastatin 40 mg tablet 40 mg PO HS #90 tab 05/12/20 apixaban 5 mg tablet 5 mg PO BID #60 tab 06/22/20 trazodone 100 mg tablet 100 mg PO HS #30 tab 06/22/20 alprazolam 0.5 mg tablet 0.5 mg PO TID PRN #30 tab 06/23/20 furosemide 20 mg tablet 20 mg PO DAILY PRN #30 tab 08/28/20 HYDROcodone/ACETAMINOPHEN [Bed[place] 5-325] 1 ea PO Q4H PRN #40 tab 10/06/20 Sennosides/Docusate Sodium [Senokot-S] 2 tab PO HS #60 tab 10/06/20
== END 2020-10-06 13:19 | DRG 470 ==
LOC: MS 07:39 → EDSTATUS 11:00
PROVIDERS: ADMIT Orthopaedic Surgery; ATTEND Orthopaedic Surgery